=== PATIENT | female | born 1985 | race Two or more races ===

== ENCOUNTER 2017-05-30 10:12 | Outpatient (CLI) | payer OTHER | END 2017-05-30 11:40 | disposition home or self-care (01) | LOC: SONOGRAMA 10:12 | DX: C07 Malignant neoplasm of parotid gland (principal) ==

== ENCOUNTER 2023-06-02 12:20 | Outpatient (CLI) | payer OTHER | END 2023-06-02 12:26 | disposition home or self-care (01) | LOC: SONOGRAMA 12:20 | PROVIDERS: ATTEND Pathology Anatomic Pathology & Clinical Pathology | DX: E04.1 Nontoxic single thyroid nodule (principal); D34 Benign neoplasm of thyroid gland ==